=== PATIENT | female | born 1985 | race African-American/Black ===

== ENCOUNTER 2018-02-15 12:01 | Emergency (ER) | payer BC ==
[2018-02-15 13:29] LABS: ADD MAN DIFF? NO
[2018-02-15 13:31] LABS: BASO % 0 % (0-3); EOS % 0 % (0-3); HEMATOCRIT 38.1 % (36.0-47.0); HEMOGLOBIN 12.5 g/dL (12.0-15.5); LYMPH # 0.9 x10^3/uL (1.0-4.8); LYMPH % 7 % (24-48); MEAN CORPUSCULAR HEMOGLOBIN 28 pg (25-35); MEAN CORPUSCULAR HGB CONC 33 g/dL (31-37); MEAN CORPUSCULAR VOLUME 86 fL (79-100); MONO % 8 % (0-9); NEUT # 9.8 x10^3uL (1.8-7.7); NEUT % 84 % (31-73); PLATELET COUNT 220 x10^3/uL (140-400); RED BLOOD COUNT 4.43 x10^6/uL (3.50-5.40); RED CELL DISTRIBUTION WIDTH 14.7 % (11.5-14.5); WHITE BLOOD COUNT 11.7 x10^3/uL (4.0-11.0)
[2018-02-15] MEDS: IV NORMAL SALINE 1000ML BAG 1,000 ML IV (13:33)
[2018-02-15] MEDS: KETOROLAC 30 MG/ML INJ. IV (13:34)
[2018-02-15] MEDS: MORPHINE SULFATE 4 MG/ML DISP.SYRIN. IV (13:34)
[2018-02-15 13:39] LABS: ANION GAP 11 (6-14); BLOOD UREA NITROGEN 8 mg/dL (7-20); CALCIUM 9.1 mg/dL (8.5-10.1); CARBON DIOXIDE 24 mmol/L (21-32); CHLORIDE 100 mmol/L (98-107); GFR 77.3; GLUCOSE 106 mg/dL (70-99); POTASSIUM 3.7 mmol/L (3.5-5.1); SODIUM 135 mmol/L (136-145)
[2018-02-15] MEDS: ACETAMINOPHEN 500 MG TABLET PO (13:41)
[2018-02-15 14:02] LABS: INFLUENZA A PATIENT NEGATIVE (NEGATIVE); INFLUENZA B PATIENT NEGATIVE (NEGATIVE); OBC FLU VALID
[2018-02-15] MEDS: cloNIDine HCL 0.1 MG TABLET PO (14:28)
== END 2018-02-15 15:14 | disposition home or self-care (01) ==
LOC: ER 12:01
DX: J11.1 Influenza due to unidentified influenza virus with other respiratory manifestations (principal); I10 Essential (primary) hypertension; Z98.51 Tubal ligation status; Z88.0 Allergy status to penicillin
CPT/HCPCS: 36415; 80048; 85025; 87804; 87804-59; 96361; 96374; 96375; 99284-25; J1885; J2270; J7030

== ENCOUNTER 2019-12-30 09:33 | Emergency (ER) | payer BC ==
[~2019-12-30] VITALS: Ht 154.9 cm; Wt 85.0 kg
[~2019-12-30 09:33] MED LIST: AMLO10TA4 PO; HYDR-2761 PO
[2019-12-30 09:40] VITALS: BP 189/92
[2019-12-30] MEDS ORDERED: CLON0.5T PO ×2 (10:07→10:12)
[2019-12-30] MEDS ORDERED: CLON0.1T PO (10:07)
[2019-12-30] MEDS ORDERED: LISI1TAB23 PO (10:07)
--- NOTE | 2019-12-30 10:13 | PHYS DOC ---
Past Medical History Past Medical History: Anxiety, Hypertension Past Surgical History: , Tubal ligation Smoking Status: Current Every Day Smoker Alcohol Use: Occasionally Drug Use: None Adult General Chief Complaint Chief Complaint: CHEST PAIN HPI HPI Patient is a 34 year old female with history of hypertension, anxiety, who presents to the ED today requesting a refill of her medications. Patient ran out of Klonopin, clonidine and lisinopril/HCTZ 5 days ago. She tried going to [facility] and she was informed that did not take walk-ins after 7 AM. Review of Systems Review of Systems Constitutional: Medication refill. Denies fever or chills [] Eyes: Denies change in visual acuity, redness, or eye pain [] HENT: Denies nasal congestion or sore throat [] Respiratory: Denies cough or shortness of breath [] Cardiovascular: No additional information not addressed in HPI [] GI: Denies abdominal pain, nausea, vomiting, bloody stools or diarrhea [] : Denies dysuria or hematuria [] Musculoskeletal: Denies back pain or joint pain [] Integument: Denies rash or skin lesions [] Neurologic: Denies headache, focal weakness or sensory changes [] All other systems were reviewed and found to be within normal limits, except as documented in this note. Allergies Allergies Allergies Coded Allergies Type Severity Reaction Last Updated Verified Penicillins Allergy Intermediate RASH 02/15/18 Yes Physical Exam Physical Exam Constitutional: Well developed, well nourished, no acute distress, non-toxic appearance. [] HENT: Normocephalic, atraumatic, bilateral external ears normal, oropharynx moist, no oral exudates, nose normal. [] Eyes: PERRLA, EOMI, conjunctiva normal, no discharge. [] Neck: Normal range of motion, no tenderness, supple, no stridor. [] Cardiovascular:Heart rate regular rhythm, no murmur [] Lungs & Thorax: Bilateral breath sounds clear to auscultation [] Abdomen: Bowel sounds normal, soft, no tenderness, no masses, no pulsatile masses. [] Skin: Warm, dry, no erythema, no rash. [] Back: No tenderness, no CVA tenderness. [] Extremities: No tenderness, no cyanosis, no clubbing, ROM intact, no edema. [] Neurologic: Alert and oriented X 3, normal motor function, normal sensory function, no focal deficits noted. [] Psychologic: Affect normal, judgement normal, mood normal. [] Current Patient Data Lab Values Laboratory Tests Test 12/30/19 09:44 POC Urine HCG, Qualitative Hcg negative (Negative) EKG EKG [address] Leavitt sinus rhythm HR 68 no STEMI[] Radiology/Procedures Radiology/Procedures [] Course & Med Decision Making Course & Med Decision Making Pertinent Labs and Imaging studies reviewed. (See chart for details) This is a 34-year-old female patient presented to the ED today for medication refills. Patient run out of Klonopin, clonidine and lisinopril/HCTZ 5 days ago. She tried going to [facility] and she was informed that did not take walk-ins after 7 AM. Two week refills given. F/u with [facility] [employer] [facility]. Earnest Disclaimer Dragon Disclaimer This electronic medical record was generated, in whole or in part, using a voice recognition dictation system. Departure Departure Impression: Primary Impression: Medication refill Disposition: 01 HOME, SELF-CARE Condition: STABLE Referrals: NO PCP (PCP) follow up with [facility] as soon as you can Patient Instructions: Medication Refill, Emergency Department Additional Instructions: You have refills for your medications two week supply. Try to follow up with the clinic as soon as you can Scripts Clonazepam (KLONOPIN) 0.5 Mg Tablet 0.25 TAB PO BID, #28 TAB Prov: FIDE RUSHING APRN 12/30/19 Lisinopril/Hydrochlorothiazide (LISINOPRIL-HCTZ 10-12.5 MG TAB) 1 Each Tablet 1 TAB PO DAILY, #14 TAB 5 Refills Prov: FIDE RUSHING APRN 12/30/19 Clonidine Hcl (CLONIDINE HCL) 0.1 Mg Tablet 1 TAB PO BID, #28 TAB 2 Refills Prov: FIDE RUSHING APRN 12/30/19 FIDE RUSHING APRN Dec 30, 2019 10:13
--- NOTE | 2019-12-30 12:51 | EKG ---
[facility] [address] [place] [address] Test Date: 2019-12-30 Test Time: 09:53:14 Pat Name: CHARLENE DELGADO Department: Room: Gender: F Game Attendant: : 1985 Requested By: STAFF NON Order Number: [id number] Reading MD: Measurements Intervals [place] Rate: 68 P: 33 VA: 228 QRS: 16 QRSD: 92 T: 69 QT: 402 QTc: 432 Interpretive Statements SINUS RHYTHM PROLONGED VA INTERVAL T ABNORMALITY IN HIGH LATERAL LEADS ABNORMAL ECG No previous ECG available for comparison
== END 2019-12-30 11:00 | disposition home or self-care (01) ==
LOC: ER 09:33
DX: Z76.0 Encounter for issue of repeat prescription (principal); I10 Essential (primary) hypertension; F41.9 Anxiety disorder, unspecified; F17.200 Nicotine dependence, unspecified, uncomplicated; Z88.0 Allergy status to penicillin; Z98.51 Tubal ligation status; Z98.890 Other specified postprocedural states
CPT/HCPCS: 81025; 93005; 99283